=== PATIENT | female | born 1935 | race Caucasian/White ===

== ENCOUNTER → 2024-08-27 | Outpatient (REF) | payer MEDICARE, OTHER ==
[2024-08-27 15:54] LABS: APPEARANCE, URINE CLEAR (CLEAR); BACTERIA, URINE AUTO NEGATIVE (NEGATIVE); BILIRUBIN, URINE AUTO NEGATIVE (NEGATIVE); BLOOD, URINE BLOOD 3+ (NEGATIVE); COLOR, URINE STRAW (YELLOW); GLUCOSE, URINE (UA) AUTO NEGATIVE (NEGATIVE); KETONE, URINE AUTO NEGATIVE (NEGATIVE); LEUKOCYTE ESTERASE, URINE AUTO NEGATIVE (NEGATIVE); MUCUS, URINE SMALL (NEGATIVE); NITRITE, URINE AUTO NEGATIVE (NEGATIVE); PROTEIN, URINE AUTO NEGATIVE (NEGATIVE); RBC, URINE AUTO 36 /HPF (0-3); SPECIFIC GRAVITY URINE AUTO 1.009 (1.002-1.035); SQUAMOUS EPITHELIAL CELL UR AU 0 /HPF (0-6); UROBILINOGEN, URINE AUTO 0.2 mg/dL (0.0-2.0); WBC, URINE AUTO 2 /HPF (0-3)
== END ==
LOC: M SMT 14:51
PROVIDERS: ATTEND Nurse Practitioner Family
DX: R31.29 Other microscopic hematuria (principal)

== ENCOUNTER 2024-10-29 07:49 | Day surgery (SDC) | payer MEDICARE, OTHER ==
[~2024-10-29] VITALS: Ht 149.9 cm; Wt 66.2 kg
[~2024-10-29 07:49] MED LIST: LEVO75TA4 PO; MAGN400C2 PO; MITOMYCIN 40MG IN 40ML SWFI SYRINGE INTRAVESIC ONE; NS (Normal Saline) 0.9% 1,000 ML IV SCH; OYST1TAB PO; POTA99CA2 PO; THERTAB52 PO; VALS160T2 PO; VITA100024 PO; VITA268C PO
[2024-10-29] MEDS ORDERED: ACETAMINOPHEN 1000MG/100ML IV BAG As Ordered ONE (08:42)
[2024-10-29] MEDS ORDERED: LIDOCAINE 2% 100MG/5ML SDV (FOR ANES.) As Ordered ONE (08:42)
[2024-10-29] MEDS ORDERED: propofoL 200 MG/20 ML VIAL As Ordered ONE (08:42)
[2024-10-29] MEDS: ceFAZolin SOD 2 GM in IV 1 EA IV ONE (10:01)
[2024-10-29] MEDS ORDERED: fentaNYL 100 MCG/2 ML INJECTION As Ordered ONE (10:04)
[2024-10-29] MEDS: MITOMYCIN 40MG IN 40ML SWFI SYRINGE INTRAVESIC ONE (10:26)
[2024-10-29] MEDS ORDERED: NS (Normal Saline) 0.9% 1,000 ML IV SCH (10:40)
[2024-10-29] MEDS ORDERED: fentaNYL 100 MCG/2 ML INJECTION IV PRN (10:40)
[2024-10-29] MEDS ORDERED: ONDANSETRON 4MG 2ML VIAL IV PRN (10:40)
[2024-10-29] MEDS ORDERED: HYDROMORPHONE HCL 0.5 MG/ 0.5 ML SYRINGE IV PRN (10:40)
[2024-10-29] MEDS ORDERED: oxyCODONE 5MG TAB PO PRN (10:40)
[2024-10-29] MEDS ORDERED: OXYB5TAB14 PO (10:42)
[2024-10-29] MEDS ORDERED: PYRI1TAB5 PO (10:42)
[2024-10-29] MEDS ORDERED: MACR100C43 PO (10:42)
[2024-10-29 11:33] VITALS: BP 161/78; TEMP 97.7; O2SAT 95
== END 2024-10-29 12:20 | disposition home or self-care (01) ==
LOC: M SDC 07:49
PROVIDERS: ATTEND Urology
DX: C67.9 Malignant neoplasm of bladder, unspecified (principal); R32 Unspecified urinary incontinence; I10 Essential (primary) hypertension; E03.9 Hypothyroidism, unspecified; E78.00 Pure hypercholesterolemia, unspecified; Z79.890 Hormone replacement therapy; Z79.899 Other long term (current) drug therapy; Z87.891 Personal history of nicotine dependence; Z88.5 Allergy status to narcotic agent
CPT/HCPCS: 51720; 52240; 52332; 88307; C1769; C2617; J0131; J0690; J3010; J9280

== ENCOUNTER → 2025-03-20 | Outpatient (REF) | payer MEDICARE, OTHER ==
[~2025-03-20] MED LIST changes: +MACR100C43 PO; -MITOMYCIN 40MG IN 40ML SWFI SYRINGE INTRAVESIC ONE; -NS (Normal Saline) 0.9% 1,000 ML IV SCH; +OXYB5TAB14 PO; +PYRI1TAB5 PO
[2025-03-20 16:02] LABS: APPEARANCE, URINE CLEAR (CLEAR); BACTERIA, URINE AUTO NEGATIVE (NEGATIVE); BILIRUBIN, URINE AUTO NEGATIVE (NEGATIVE); BLOOD, URINE BLOOD NEGATIVE (NEGATIVE); GLUCOSE, URINE (UA) AUTO NEGATIVE (NEGATIVE); KETONE, URINE AUTO NEGATIVE (NEGATIVE); LEUKOCYTE ESTERASE, URINE AUTO NEGATIVE (NEGATIVE); NITRITE, URINE AUTO NEGATIVE (NEGATIVE); PROTEIN, URINE AUTO NEGATIVE (NEGATIVE); RBC, URINE AUTO 0 /HPF (0-3); SPECIFIC GRAVITY URINE AUTO 1.005 (1.002-1.035); SQUAMOUS EPITHELIAL CELL UR AU 0 /HPF (0-6); UROBILINOGEN, URINE AUTO 0.2 mg/dL (0.0-2.0); WBC, URINE AUTO 0 /HPF (0-3)
== END ==
LOC: M SMT 15:14
PROVIDERS: ATTEND Urology
DX: Z85.51 Personal history of malignant neoplasm of bladder (principal)

== ENCOUNTER → 2025-06-19 | Outpatient (REF) | payer MEDICARE, OTHER ==
[~2025-06-19] MED LIST changes: -VITA100024 PO; +VITA100051 PO
[2025-06-19 18:43] LABS: APPEARANCE, URINE CLEAR (CLEAR); BACTERIA, URINE AUTO NEGATIVE (NEGATIVE); BILIRUBIN, URINE AUTO NEGATIVE (NEGATIVE); BLOOD, URINE BLOOD NEGATIVE (NEGATIVE); GLUCOSE, URINE (UA) AUTO NEGATIVE (NEGATIVE); KETONE, URINE AUTO NEGATIVE (NEGATIVE); LEUKOCYTE ESTERASE, URINE AUTO NEGATIVE (NEGATIVE); NITRITE, URINE AUTO NEGATIVE (NEGATIVE); PROTEIN, URINE AUTO NEGATIVE (NEGATIVE); RBC, URINE AUTO 1 /HPF (0-3); SPECIFIC GRAVITY URINE AUTO 1.014 (1.002-1.035); SQUAMOUS EPITHELIAL CELL UR AU 0 /HPF (0-6); UROBILINOGEN, URINE AUTO 0.2 mg/dL (0.0-2.0); WBC, URINE AUTO 1 /HPF (0-3)
== END ==
LOC: M SMT 16:54
PROVIDERS: ATTEND Urology
DX: Z85.51 Personal history of malignant neoplasm of bladder (principal)